=== PATIENT | male | born 1985 ===

== ENCOUNTER 2024-08-27 15:32 | Inpatient (IN) | payer OTHER, SELFPAY ==
--- OUTSIDE RECORDS SUMMARY | 2024-08-27 15:39 | XMS_ITS | Patient Health Record ---
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
[2024-08-27 15:52] VITALS: BP 96/51; PULSE 68; RESP 16; TEMP 36.6; O2SAT 98
[2024-08-27 16:14] VITALS: BMI 34.6
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
[2024-08-27 20:00] VITALS: BP 111/52; PULSE 69; RESP 16; TEMP 36.7; O2SAT 99
[2024-08-28 07:00] VITALS: BMI 35.1
[2024-08-28 07:52] VITALS: BP 112/52; PULSE 61; RESP 18; TEMP 36.4
[2024-08-28 08:53] LABS: Hemoglobin A1C 101.2049 umol/L; Total Hemoglobin (HGBA1C) 3697.0806 umol/L
[2024-08-28] MEDS: Nicotine 21 MG PATCH.TD24 TRANSDERMA (08:53)
[2024-08-28 08:54] LABS: Alanine Aminotransferase 16 U/L (0-40); Albumin Level 4.4 g/dL (3.5-5.0); Alkaline Phosphatase 72 U/L (39-117); Anion Gap 12 (12-20); Aspartate Amino Transferase 21 U/L (5-37); Blood Urea Nitrogen 10 mg/dL (9-16); Calcium 9.0 mg/dL (8.4-10.2); Carbon Dioxide 26 mmol/L (22-29); Chloride 105 mmol/L (96-108); Cholesterol 154 mg/dL (<200); Creatinine Clr Calc Pharmacy 148.7; Estimated Glomerular Filt Rate > 60; HDL Cholesterol 36 mg/dL (>40); Potassium 3.7 mmol/L (3.3-5.1); Sodium 139 mmol/L (135-145); Total Protein 7.1 g/dL (6.5-8.0); Triglycerides 65 mg/dL (<150)
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
[2024-08-28 21:53] VITALS: BP 105/62; PULSE 73; RESP 16; O2SAT 97
[2024-08-29 07:25] VITALS: BP 101/54; PULSE 53; RESP 14; TEMP 36.9; O2SAT 97
[2024-08-29] MEDS: Nicotine 21 MG PATCH.TD24 TRANSDERMA (08:24)
--- NOTE | 2024-08-29 08:50 | P.PNPSI_ITS ---
Subjective Subjective Date of Service: 08/29/24 Reason For Visit: Unspecified Mental Disorder Subjective Notes: Conditional Voluntary Interim History: Active on unit. attending groups. patient continues to report feeling depressed; reports he was able to sleep through the night. denies any side effects from medications. denies SI/HI/VH/AH. Continue current tx plan. Medication Compliance: Yes Side effects from medications: No Attending Groups: Yes Mental Status Exam Mental Status Exam Narrative: Pt is alert and oriented; behavior is cooperative and calm; dressed in casual attire; mood is described as depressed ; eye contact appropriate; Speech is normal rate, volume and not pressured; thought process is organized; Thought content is on tx; denies SI/HI/VH/AH. Diagnostics Vital Signs (24Hr): Vital Signs - 24 hr 08/28/24 21:53 08/29/24 07:25 Temperature 98.4 F Pulse Rate 73 53 Respiratory Rate 16 14 Blood Pressure 105/62 101/54 L Pulse Oximetry 97 97 Oxygen Delivery Method Room Air Room Air BMI result Body Mass Index 35.1 Labs 08/28/24 08:32 Labs: Laboratory Results - last 48 hr 08/28/24 08:32 Sodium 139 Potassium 3.7 Chloride 105 Carbon Dioxide 26 Anion Gap 12 BUN 10 Creatinine 0.81 Estim Creat Clear Calc 148.7 Estimated GFR > 60 Random Glucose 95 Estimat Average Glucose 88 Hemoglobin A1c % 4.7 Calcium 9.0 Total Bilirubin 0.6 AST 21 ALT 16 Alkaline Phosphatase 72 Total Protein 7.1 Albumin 4.4 Triglycerides 65 Cholesterol 154 LDL Cholesterol, Calc 105 H HDL Cholesterol 36 L Medications Medications Current Medications Acetaminophen (Acetaminophen 325 Mg Tablet) 650 mg PO Q6H PRN PRN Reason: Headache/Pain, Scale 1-10 Last Admin: 08/28/24 22:00 Dose: 650 mg Al Hydroxide/Mg Hydroxide (Magnesium Hydrox/Alum Hydrox 30 Ml Oral.Susp) 30 ml PO Q6H PRN PRN Reason: Heartburn/Nausea Hydroxyzine HCl (Hydroxyzine Hcl 25 Mg Tablet) 25 mg PO Q6H PRN PRN Reason: mild anxiety Levetiracetam (Levetiracetam 500 Mg Tablet) 500 mg PO BID [facility] Last Admin: 08/29/24 08:26 Dose: 500 mg Magnesium Hydroxide (Milk Of Magnesia 30 Ml Oral.Susp) 30 ml PO DAILY PRN PRN Reason: Constipation Mirtazapine (Mirtazapine 15 Mg Tablet) 15 mg PO BEDTIME [facility] Last Admin: 08/28/24 22:00 Dose: 15 mg Naproxen (Naproxen 500 Mg Tablet) 500 mg PO BID [facility] Last Admin: 08/29/24 08:26 Dose: 500 mg Nicotine (Nicotine 21 Mg Patch.Td24) 21 mg TRANSDERMA DAILY [facility] Last Admin: 08/29/24 08:24 Dose: 21 mg Nicotine Polacrilex (Nicotine Polacrilex 2 Mg Gum) 4 mg BUCCAL Q2H PRN PRN Reason: Nicotine Cravings Olanzapine (Olanzapine 5 Mg Tablet) 5 mg PO Q4H PRN PRN Reason: agitation Trazodone HCl (Trazodone Hcl 100 Mg Tablet) 100 mg PO BEDTIME [facility] Last Admin: 08/28/24 22:00 Dose: 100 mg Allergies Allergies Allergy/AdvReac Type Severity Reaction Status Date / Time bee pollen (bee stings) Allergy Severe Swelling Verified 08/28/24 12:52 Peanut Butter Allergy Severe Hives Verified 08/28/24 12:52 Assessment & Plan Assessment & Plan (1) MDD (major depressive disorder): Status: Acute Code(s): F32.9 - Major depressive disorder, single episode, unspecified (2) PTSD (post-traumatic stress disorder): Status: Acute Code(s): F43.10 - Post-traumatic stress disorder, unspecified (3) Cocaine use disorder: Status: Acute Code(s): F14.10 - Cocaine abuse, uncomplicated Plan Patient is a 39-year-old male with history of MDD, PTSD and cocaine use d/o who self presented to ER due to experiencing auditory hallucinations and increased paranoia secondary to substance use and increased life stressors. Plan: CV 15 minute safety checks Continue home medications Start: Remeron 15mg PO bedtime obtain collateral referral to outpatient psychiatric providers encourage groups discharge planning 08/29:Active on unit. attending groups. patient continues to report feeling depressed; reports he was able to sleep through the night. denies any side effects from medications. denies SI/HI/VH/AH. Continue current tx plan. Patient educated on: diagnosis, medication risk/benefits and therapeutic strategies Reason for continued inpatient stay Substantial Risk for: med/psych decompensation Time Spent With Patient Time: Total time managing care of this patient today __20__ minutes.
[2024-08-29 19:40] VITALS: BP 94/56; PULSE 75; RESP 16; TEMP 36.9; O2SAT 98
[2024-08-30 08:00] VITALS: BP 107/65; PULSE 63; RESP 18; TEMP 36.5; O2SAT 100
[2024-08-30] MEDS: Nicotine 21 MG PATCH.TD24 TRANSDERMA (09:20)
[2024-08-30 20:50] VITALS: BP 139/60; PULSE 80; RESP 18; TEMP 37; O2SAT 96
--- NOTE | 2024-08-30 22:52 | P.PNPSI_ITS ---
Subjective Subjective Date of Service: 08/30/24 Reason For Visit: Unspecified Mental Disorder Subjective Notes: Conditional Voluntary Healthcare Proxy: No Guardianship: No Medical Problems Affecting Mental Status: No Interim History: Medical record and nursing notes reviewed; case discussed during rounds with team/nursing staff, and met with patient for supportive therapy/psychoeducation, as well as medication management. Per chart review, patient slept for 7 hours and was medication compliant. Denies any side effects. He does not have a whole knowledge about what medication he has been taking that do remember that medication for seizure disorder. He is visible in common areas, however mostly kept himself, quiet. Appear to be preoccupied. Denies safety concerns. Mood is up and down in terms of depression and anxiety, rated a 5/10. , reports voices mumbling voices experience this morning and yesterday but having tough time to elaborate specific voices that he heard. Medication Compliance: Yes Side effects from medications: No Attending Groups: Intermittent Review of Systems Acute medical concerns: No Medical Review of Systems: unchanged Review of Systems Review of Systems Denies any shortness of breath, chest pain, dizziness, lightheadedness, abdominal pain or discomfort, nausea vomiting or diarrhea Yes all other systems are reviewed and are negative Mental Status Exam Mental Status Exam Narrative: Pt is alert and oriented; behavior is cooperative and calm; dressed in hospital attire; mood is described as up and down ; in terms of depression and anxiety eye contact appropriate; Speech is softto normal rate, volume and not pressured; thought process is organized; Thought content is on tx; denies SI/SIB/HI/VH. Reports hearing mumbling voices this morning and yesterday Diagnostics Vital Signs (24Hr): Vital Signs - 24 hr 08/30/24 08:00 08/30/24 20:50 Temperature 97.7 F 98.6 F Pulse Rate 63 80 Respiratory Rate 18 18 Blood Pressure 107/65 139/60 Pulse Oximetry 100 96 Oxygen Delivery Method Room Air Room Air BMI result Body Mass Index 35.1 Labs 08/28/24 08:32 Medications Medications Current Medications Acetaminophen (Acetaminophen 325 Mg Tablet) 650 mg PO Q6H PRN PRN Reason: Headache/Pain, Scale 1-10 Last Admin: 08/28/24 22:00 Dose: 650 mg Al Hydroxide/Mg Hydroxide (Magnesium Hydrox/Alum Hydrox 30 Ml Oral.Susp) 30 ml PO Q6H PRN PRN Reason: Heartburn/Nausea Hydroxyzine HCl (Hydroxyzine Hcl 25 Mg Tablet) 25 mg PO Q6H PRN PRN Reason: mild anxiety Levetiracetam (Levetiracetam 500 Mg Tablet) 500 mg PO BID [facility] Last Admin: 08/30/24 20:58 Dose: 500 mg Magnesium Hydroxide (Milk Of Magnesia 30 Ml Oral.Susp) 30 ml PO DAILY PRN PRN Reason: Constipation Mirtazapine (Mirtazapine 15 Mg Tablet) 15 mg PO BEDTIME [facility] Last Admin: 08/30/24 20:59 Dose: 15 mg Naproxen (Naproxen 500 Mg Tablet) 500 mg PO BID [facility] Last Admin: 08/30/24 20:58 Dose: 500 mg Nicotine (Nicotine 21 Mg Patch.Td24) 21 mg TRANSDERMA DAILY [facility] Last Admin: 08/30/24 09:20 Dose: 21 mg Nicotine Polacrilex (Nicotine Polacrilex 2 Mg Gum) 4 mg BUCCAL Q2H PRN PRN Reason: Nicotine Cravings Olanzapine (Olanzapine 5 Mg Tablet) 5 mg PO Q4H PRN PRN Reason: agitation Last Admin: 08/29/24 09:58 Dose: 5 mg Trazodone HCl (Trazodone Hcl 100 Mg Tablet) 100 mg PO BEDTIME [facility] Last Admin: 08/30/24 20:58 Dose: 100 mg Allergies Allergies Allergy/AdvReac Type Severity Reaction Status Date / Time bee pollen (bee stings) Allergy Severe Swelling Verified 08/28/24 12:52 Peanut Butter Allergy Severe Hives Verified 08/28/24 12:52 Assessment & Plan Assessment & Plan (1) MDD (major depressive disorder): Status: Acute Code(s): F32.9 - Major depressive disorder, single episode, unspecified (2) PTSD (post-traumatic stress disorder): Status: Acute Code(s): F43.10 - Post-traumatic stress disorder, unspecified (3) Cocaine use disorder: Status: Acute Code(s): F14.10 - Cocaine abuse, uncomplicated Plan Patient is a 39-year-old male with history of MDD, PTSD and cocaine use d/o who self presented to ER due to experiencing auditory hallucinations and increased paranoia secondary to substance use and increased life stressors. Plan: CV 15 minute safety checks Continue home medications Start: Remeron 15mg PO bedtime obtain collateral referral to outpatient psychiatric providers encourage groups discharge planning 08/29:Active on unit. attending groups. patient continues to report feeling depressed; reports he was able to sleep through the night. denies any side effects from medications. denies SI/HI/VH/AH. Continue current tx plan. 08/30/24: Visible on the unit in common area but keep to himself, calm and cooperative upon approach. Mood is up and down with anxiety and depression a 06/28. Reports mumbling voices yesterday and early today. We will consider to start on anti psychotic medication. We will discuss with him tomorrow Patient educated on: medication risk/benefits and therapeutic strategies Informed Consent: understands Reason for continued inpatient stay Substantial Risk for: med/psych decompensation Time Spent With Patient Time: Total time managing care of this patient today ____ minutes.
[2024-08-31 08:00] VITALS: BP 124/65; PULSE 97; RESP 14; TEMP 36.6; O2SAT 100
[2024-08-31] MEDS: Nicotine 21 MG PATCH.TD24 TRANSDERMA (09:32)
--- NOTE | 2024-08-31 13:16 | P.PNPSI_ITS ---
Subjective Subjective Date of Service: 08/31/24 Reason For Visit: Unspecified Mental Disorder Subjective Notes: Conditional Voluntary Healthcare Proxy: No Guardianship: No Medical Problems Affecting Mental Status: No Interim History: Medical record and nursing notes reviewed; case discussed during rounds with team/nursing staff, and met with patient for supportive therapy/psychoeducation, as well as medication management. Patient slept 8 hours and was medication compliant, denies side effects. Appear to be preoccupied and paranoid. Reports hearing voices for about a month so for. Reports sometimes experience PTSD. He also shared that he used to drink a lot. Denies anxiety and depression. Discussed with him regarding antipsychotic medication for voices and paranoid thoughts. To avoid weight gain, he agreed to take Abilify. Medication Compliance: Yes Side effects from medications: No Attending Groups: Intermittent Review of Systems Acute medical concerns: No Medical Review of Systems: unchanged Review of Systems Review of Systems Denies any shortness of breath, chest pain, dizziness, lightheadedness, abdominal pain or discomfort, nausea vomiting or diarrhea Yes all other systems are reviewed and are negative Mental Status Exam Mental Status Exam Narrative: Pt is alert and oriented; behavior is cooperative and calm; dressed in hospital attire; mood is described as good ; in terms of depression and anxiety eye contact appropriate; Speech is soft to normal rate, volume and not pressured; thought process is organized; Thought content is on tx; denies SI/SIB/HI/VH. Reports hearing mumbling voices and feel paranoid,especially when PTSD symptoms increased. Diagnostics Vital Signs (24Hr): Vital Signs - 24 hr 08/30/24 20:50 08/31/24 08:00 Temperature 98.6 F 97.9 F Pulse Rate 80 97 Respiratory Rate 18 14 Blood Pressure 139/60 124/65 Pulse Oximetry 96 100 Oxygen Delivery Method Room Air Room Air BMI result Body Mass Index 35.1 Labs 08/28/24 08:32 Medications Medications Current Medications Acetaminophen (Acetaminophen 325 Mg Tablet) 650 mg PO Q6H PRN PRN Reason: Headache/Pain, Scale 1-10 Last Admin: 08/28/24 22:00 Dose: 650 mg Al Hydroxide/Mg Hydroxide (Magnesium Hydrox/Alum Hydrox 30 Ml Oral.Susp) 30 ml PO Q6H PRN PRN Reason: Heartburn/Nausea Aripiprazole (Aripiprazole 5 Mg Tablet) 5 mg PO DAILY [facility] Last Admin: 08/31/24 10:29 Dose: 5 mg Hydroxyzine HCl (Hydroxyzine Hcl 25 Mg Tablet) 25 mg PO Q6H PRN PRN Reason: mild anxiety Levetiracetam (Levetiracetam 500 Mg Tablet) 500 mg PO BID [facility] Last Admin: 08/31/24 09:32 Dose: 500 mg Magnesium Hydroxide (Milk Of Magnesia 30 Ml Oral.Susp) 30 ml PO DAILY PRN PRN Reason: Constipation Mirtazapine (Mirtazapine 15 Mg Tablet) 15 mg PO BEDTIME [facility] Last Admin: 08/30/24 20:59 Dose: 15 mg Naproxen (Naproxen 500 Mg Tablet) 500 mg PO BID [facility] Last Admin: 08/31/24 09:31 Dose: 500 mg Nicotine (Nicotine 21 Mg Patch.Td24) 21 mg TRANSDERMA DAILY [facility] Last Admin: 08/31/24 09:32 Dose: 21 mg Nicotine Polacrilex (Nicotine Polacrilex 2 Mg Gum) 4 mg BUCCAL Q2H PRN PRN Reason: Nicotine Cravings Olanzapine (Olanzapine 5 Mg Tablet) 5 mg PO Q4H PRN PRN Reason: agitation Last Admin: 08/29/24 09:58 Dose: 5 mg Trazodone HCl (Trazodone Hcl 100 Mg Tablet) 100 mg PO BEDTIME [facility] Last Admin: 08/30/24 20:58 Dose: 100 mg Allergies Allergies Allergy/AdvReac Type Severity Reaction Status Date / Time bee pollen (bee stings) Allergy Severe Swelling Verified 08/28/24 12:52 Peanut Butter Allergy Severe Hives Verified 08/28/24 12:52 Assessment & Plan Assessment & Plan (1) MDD (major depressive disorder): Status: Acute Code(s): F32.9 - Major depressive disorder, single episode, unspecified (2) PTSD (post-traumatic stress disorder): Status: Acute Code(s): F43.10 - Post-traumatic stress disorder, unspecified (3) Cocaine use disorder: Status: Acute Code(s): F14.10 - Cocaine abuse, uncomplicated Plan Patient is a 39-year-old male with history of MDD, PTSD and cocaine use d/o who self presented to ER due to experiencing auditory hallucinations and increased paranoia secondary to substance use and increased life stressors. Plan: CV 15 minute safety checks Continue home medications Start: Remeron 15mg PO bedtime obtain collateral referral to outpatient psychiatric providers encourage groups discharge planning 08/29:Active on unit. attending groups. patient continues to report feeling depressed; reports he was able to sleep through the night. denies any side effects from medications. denies SI/HI/VH/AH. Continue current tx plan. 08/30/24: Visible on the unit in common area but keep to himself, calm and cooperative upon approach. Mood is up and down with anxiety and depression a 06/28. Reports mumbling voices yesterday and early today. We will consider to start on anti psychotic medication. We will discuss with him tomorrow. 08/31/24: Sleep well, no appetite issues, visible, mostly keeps to himself, quiet. Appear to be preoccupied. Reports voices and feeling paranoid. Every 2 start Abilify to avoid weight gain compared to the other antipsychotic medications. Started Abilify 5 mg this morning. Monitor for side effects and continue to titrate to therapeutic dose. Patient educated on: medication risk/benefits and therapeutic strategies Informed Consent: understands Reason for continued inpatient stay Substantial Risk for: med/psych decompensation Time Spent With Patient Time: Total time managing care of this patient today ____ minutes.
[2024-08-31 20:00] VITALS: BP 118/58; PULSE 74; RESP 16; TEMP 36.4; O2SAT 99
[2024-09-01 08:00] VITALS: BP 108/66; PULSE 58; RESP 16; TEMP 36.4; O2SAT 99
[2024-09-01] MEDS: Nicotine 21 MG PATCH.TD24 TRANSDERMA (09:07)
--- NOTE | 2024-09-01 12:38 | P.PNPSI_ITS ---
Subjective Subjective Date of Service: 09/01/24 Reason For Visit: Unspecified Mental Disorder Subjective Notes: Conditional Voluntary Interim History: Active on unit, social with peers. attending groups. guarded. pt reports feeling okay today; he reports poor sleep last night d/t waking up frequently. Patient reports +AH and paranoia over weekend; was started on Abilify yesterday. denies any side effects from medications. denies SI/HI/VH/AH today. Continue urrent tx plan. Medication Compliance: Yes Side effects from medications: No Attending Groups: Yes Mental Status Exam Mental Status Exam Narrative: Pt is alert and oriented; behavior is cooperative and calm, guarded; dressed in casual attire; mood is described as okay ; eye contact appropriate; Speech is normal rate, volume and not pressured; thought process is organized and goal directed; Thought content is on tx; pt reports paranoia over weekend; denies SI/HI/VH/AH at this time. Diagnostics Vital Signs (24Hr): Vital Signs - 24 hr 08/31/24 20:00 09/01/24 08:00 Temperature 97.5 F 97.6 F Pulse Rate 74 58 Respiratory Rate 16 16 Blood Pressure 118/58 L 108/66 Pulse Oximetry 99 99 Oxygen Delivery Method Room Air Room Air BMI result Body Mass Index 35.1 Labs 08/28/24 08:32 Medications Medications Current Medications Acetaminophen (Acetaminophen 325 Mg Tablet) 650 mg PO Q6H PRN PRN Reason: Headache/Pain, Scale 1-10 Last Admin: 08/28/24 22:00 Dose: 650 mg Al Hydroxide/Mg Hydroxide (Magnesium Hydrox/Alum Hydrox 30 Ml Oral.Susp) 30 ml PO Q6H PRN PRN Reason: Heartburn/Nausea Aripiprazole (Aripiprazole 5 Mg Tablet) 5 mg PO DAILY [facility] Last Admin: 09/01/24 09:06 Dose: 5 mg Hydroxyzine HCl (Hydroxyzine Hcl 25 Mg Tablet) 25 mg PO Q6H PRN PRN Reason: mild anxiety Last Admin: 08/31/24 22:06 Dose: 25 mg Levetiracetam (Levetiracetam 500 Mg Tablet) 500 mg PO BID [facility] Last Admin: 09/01/24 09:06 Dose: 500 mg Magnesium Hydroxide (Milk Of Magnesia 30 Ml Oral.Susp) 30 ml PO DAILY PRN PRN Reason: Constipation Mirtazapine (Mirtazapine 15 Mg Tablet) 15 mg PO BEDTIME [facility] Last Admin: 08/31/24 20:52 Dose: 15 mg Naproxen (Naproxen 500 Mg Tablet) 500 mg PO BID [facility] Last Admin: 09/01/24 09:06 Dose: 500 mg Nicotine (Nicotine 21 Mg Patch.Td24) 21 mg TRANSDERMA DAILY [facility] Last Admin: 09/01/24 09:07 Dose: 21 mg Nicotine Polacrilex (Nicotine Polacrilex 2 Mg Gum) 4 mg BUCCAL Q2H PRN PRN Reason: Nicotine Cravings Olanzapine (Olanzapine 5 Mg Tablet) 5 mg PO Q4H PRN PRN Reason: agitation Last Admin: 08/31/24 22:06 Dose: 5 mg Trazodone HCl (Trazodone Hcl 100 Mg Tablet) 100 mg PO BEDTIME [facility] Last Admin: 08/31/24 20:51 Dose: 100 mg Allergies Allergies Allergy/AdvReac Type Severity Reaction Status Date / Time bee pollen (bee stings) Allergy Severe Swelling Verified 08/28/24 12:52 Peanut Butter Allergy Severe Hives Verified 08/28/24 12:52 Assessment & Plan Assessment & Plan (1) MDD (major depressive disorder): Status: Acute Code(s): F32.9 - Major depressive disorder, single episode, unspecified (2) PTSD (post-traumatic stress disorder): Status: Acute Code(s): F43.10 - Post-traumatic stress disorder, unspecified (3) Cocaine use disorder: Status: Acute Code(s): F14.10 - Cocaine abuse, uncomplicated Plan Patient is a 39-year-old male with history of MDD, PTSD and cocaine use d/o who self presented to ER due to experiencing auditory hallucinations and increased paranoia secondary to substance use and increased life stressors. Plan: CV 15 minute safety checks Continue home medications Start: Remeron 15mg PO bedtime obtain collateral referral to outpatient psychiatric providers encourage groups discharge planning 08/29:Active on unit. attending groups. patient continues to report feeling depressed; reports he was able to sleep through the night. denies any side effects from medications. denies SI/HI/VH/AH. Continue current tx plan. 08/30/24: Visible on the unit in common area but keep to himself, calm and cooperative upon approach. Mood is up and down with anxiety and depression a 06/28. Reports mumbling voices yesterday and early today. We will consider to start on anti psychotic medication. We will discuss with him tomorrow. 08/31/24: Sleep well, no appetite issues, visible, mostly keeps to himself, quiet. Appear to be preoccupied. Reports voices and feeling paranoid. Every 2 start Abilify to avoid weight gain compared to the other antipsychotic medications. Started Abilify 5 mg this morning. Monitor for side effects and continue to titrate to therapeutic dose. 09/01: Active on unit, social with peers. attending groups. guarded. pt reports feeling okay today; he reports poor sleep last night d/t waking up frequently. Patient reports +AH and paranoia over weekend; was started on Abilify yesterday. denies any side effects from medications. denies SI/HI/VH/AH today. Continue urrent tx plan. Patient educated on: diagnosis, medication risk/benefits and therapeutic strategies Reason for continued inpatient stay Substantial Risk for: med/psych decompensation Time Spent With Patient Time: Total time managing care of this patient today _20___ minutes.
[2024-09-01 20:00] VITALS: BP 104/63; PULSE 66; RESP 16; TEMP 36.6; O2SAT 99
[2024-09-02 07:55] VITALS: BP 109/56; PULSE 63; RESP 16; TEMP 36.7; O2SAT 98
--- NOTE | 2024-09-02 09:33 | P.PNPSI_ITS ---
Subjective Subjective Date of Service: 09/02/24 Reason For Visit: Unspecified Mental Disorder Subjective Notes: Conditional Voluntary Interim History: Patient requesting to be referred to substance abuse program; [facility] worker aware. Patient reports no longer feeling paranoid however having auditory hallucinations of mumbles ; encouraged to utilize PRN zyprexa. denies SI/HI/VH. Continue current tx plan. Medication Compliance: Yes Side effects from medications: No Attending Groups: Yes Mental Status Exam Mental Status Exam Narrative: Pt is alert and oriented; behavior is cooperative and calm, guarded; dressed in casual attire; mood is described as alright ; eye contact appropriate; Speech is normal rate, volume and not pressured; thought process is organized and goal directed; Thought content is on tx; denies SI/HI/VH. + Diagnostics Vital Signs (24Hr): Vital Signs - 24 hr 09/01/24 20:00 09/02/24 07:55 Temperature 98 F 98.0 F Pulse Rate 66 63 Respiratory Rate 16 16 Blood Pressure 104/63 109/56 L Pulse Oximetry 99 98 Oxygen Delivery Method Room Air Room Air BMI result Body Mass Index 35.1 Labs 08/28/24 08:32 Medications Medications Current Medications Acetaminophen (Acetaminophen 325 Mg Tablet) 650 mg PO Q6H PRN PRN Reason: Headache/Pain, Scale 1-10 Last Admin: 08/28/24 22:00 Dose: 650 mg Al Hydroxide/Mg Hydroxide (Magnesium Hydrox/Alum Hydrox 30 Ml Oral.Susp) 30 ml PO Q6H PRN PRN Reason: Heartburn/Nausea Aripiprazole (Aripiprazole 5 Mg Tablet) 5 mg PO DAILY [facility] Last Admin: 09/02/24 08:26 Dose: 5 mg Hydroxyzine HCl (Hydroxyzine Hcl 25 Mg Tablet) 25 mg PO Q6H PRN PRN Reason: mild anxiety Last Admin: 08/31/24 22:06 Dose: 25 mg Levetiracetam (Levetiracetam 500 Mg Tablet) 500 mg PO BID [facility] Last Admin: 09/02/24 08:26 Dose: 500 mg Magnesium Hydroxide (Milk Of Magnesia 30 Ml Oral.Susp) 30 ml PO DAILY PRN PRN Reason: Constipation Mirtazapine (Mirtazapine 15 Mg Tablet) 15 mg PO BEDTIME [facility] Last Admin: 09/01/24 20:40 Dose: 15 mg Naproxen (Naproxen 500 Mg Tablet) 500 mg PO BID [facility] Last Admin: 09/02/24 08:26 Dose: 500 mg Nicotine (Nicotine 21 Mg Patch.Td24) 21 mg TRANSDERMA DAILY [facility] Last Admin: 09/02/24 09:23 Dose: Not Given Nicotine Polacrilex (Nicotine Polacrilex 2 Mg Gum) 4 mg BUCCAL Q2H PRN PRN Reason: Nicotine Cravings Olanzapine (Olanzapine 5 Mg Tablet) 5 mg PO Q4H PRN PRN Reason: agitation Last Admin: 08/31/24 22:06 Dose: 5 mg Trazodone HCl (Trazodone Hcl 100 Mg Tablet) 100 mg PO BEDTIME [facility] Last Admin: 09/01/24 20:40 Dose: 100 mg Allergies Allergies Allergy/AdvReac Type Severity Reaction Status Date / Time bee pollen (bee stings) Allergy Severe Swelling Verified 08/28/24 12:52 Peanut Butter Allergy Severe Hives Verified 08/28/24 12:52 Assessment & Plan Assessment & Plan (1) MDD (major depressive disorder): Status: Acute Code(s): F32.9 - Major depressive disorder, single episode, unspecified (2) PTSD (post-traumatic stress disorder): Status: Acute Code(s): F43.10 - Post-traumatic stress disorder, unspecified (3) Cocaine use disorder: Status: Acute Code(s): F14.10 - Cocaine abuse, uncomplicated Plan Patient is a 39-year-old male with history of MDD, PTSD and cocaine use d/o who self presented to ER due to experiencing auditory hallucinations and increased paranoia secondary to substance use and increased life stressors. Plan: CV 15 minute safety checks Continue home medications Start: Remeron 15mg PO bedtime obtain collateral referral to outpatient psychiatric providers encourage groups discharge planning 08/29:Active on unit. attending groups. patient continues to report feeling depressed; reports he was able to sleep through the night. denies any side effects from medications. denies SI/HI/VH/AH. Continue current tx plan. 08/30/24: Visible on the unit in common area but keep to himself, calm and cooperative upon approach. Mood is up and down with anxiety and depression a 5/10. Reports mumbling voices yesterday and early today. We will consider to start on anti psychotic medication. We will discuss with him tomorrow. 08/31/24: Sleep well, no appetite issues, visible, mostly keeps to himself, quiet. Appear to be preoccupied. Reports voices and feeling paranoid. Every 2 start Abilify to avoid weight gain compared to the other antipsychotic medications. Started Abilify 5 mg this morning. Monitor for side effects and continue to titrate to therapeutic dose. 09/01: Active on unit, social with peers. attending groups. guarded. pt reports feeling okay today; he reports poor sleep last night d/t waking up frequently. Patient reports +AH and paranoia over weekend; was started on Abilify yesterday. denies any side effects from medications. denies SI/HI/VH/AH today. Continue urrent tx plan. 09/02: Patient requesting to be referred to substance abuse program; [facility] worker aware. Patient reports no longer feeling paranoid however having auditory hallucinations of mumbles ; encouraged to utilize PRN zyprexa. denies SI/HI/VH. Continue current tx plan. Patient educated on: diagnosis, medication risk/benefits and therapeutic strategies Reason for continued inpatient stay Substantial Risk for: med/psych decompensation Time Spent With Patient Time: Total time managing care of this patient today _20___ minutes.
[2024-09-02 20:00] VITALS: BP 124/56; PULSE 75; RESP 16; TEMP 36.7; O2SAT 99
[2024-09-03 07:53] VITALS: BP 85/45; PULSE 60; RESP 18; TEMP 37.1; O2SAT 98
--- NOTE | 2024-09-03 07:57 | HO.PSYCHPN ---
Subjective Subjective Date of Service: 09/03/24 Reason For Visit: Unspecified Mental Disorder Subjective Notes: Conditional Voluntary Interim History: Patient reports feeling alright this morning; reports he did not sleep well last night but does not know why. Patient reports zyprexa has been helpful with auditory hallucinations. denies SI/HI/VH/AH. plans on discharging Sunday if continues to improve. Continue current tx plan. Medication Compliance: Yes Side effects from medications: No Attending Groups: Yes Mental Status Exam Mental Status Exam Narrative: Pt is alert and oriented; behavior is cooperative and calm, guarded; dressed in casual attire; mood is described as alright ; eye contact appropriate; Speech is normal rate, volume and not pressured; thought process is organized; Thought content is on tx; denies SI/HI/VH/AH. Diagnostics Vital Signs (24Hr): Vital Signs - 24 hr 09/02/24 20:00 Temperature 98.1 F Pulse Rate 75 Respiratory Rate 16 Blood Pressure 124/56 L Pulse Oximetry 99 Oxygen Delivery Method Room Air BMI result Body Mass Index 35.1 Labs 08/28/24 08:32 Medications Medications Current Medications Acetaminophen (Acetaminophen 325 Mg Tablet) 650 mg PO Q6H PRN PRN Reason: Headache/Pain, Scale 1-10 Last Admin: 08/28/24 22:00 Dose: 650 mg Al Hydroxide/Mg Hydroxide (Magnesium Hydrox/Alum Hydrox 30 Ml Oral.Susp) 30 ml PO Q6H PRN PRN Reason: Heartburn/Nausea Aripiprazole (Aripiprazole 5 Mg Tablet) 5 mg PO DAILY [facility] Last Admin: 09/02/24 08:26 Dose: 5 mg Hydroxyzine HCl (Hydroxyzine Hcl 25 Mg Tablet) 25 mg PO Q6H PRN PRN Reason: mild anxiety Last Admin: 09/02/24 22:48 Dose: 25 mg Levetiracetam (Levetiracetam 500 Mg Tablet) 500 mg PO BID [facility] Last Admin: 09/02/24 20:55 Dose: 500 mg Magnesium Hydroxide (Milk Of Magnesia 30 Ml Oral.Susp) 30 ml PO DAILY PRN PRN Reason: Constipation Mirtazapine (Mirtazapine 15 Mg Tablet) 15 mg PO BEDTIME [facility] Last Admin: 09/02/24 20:55 Dose: 15 mg Naproxen (Naproxen 500 Mg Tablet) 500 mg PO BID [facility] Last Admin: 09/02/24 20:56 Dose: 500 mg Nicotine (Nicotine 21 Mg Patch.Td24) 21 mg TRANSDERMA DAILY [facility] Last Admin: 09/02/24 09:23 Dose: Not Given Nicotine Polacrilex (Nicotine Polacrilex 2 Mg Gum) 4 mg BUCCAL Q2H PRN PRN Reason: Nicotine Cravings Olanzapine (Olanzapine 5 Mg Tablet) 5 mg PO Q4H PRN PRN Reason: agitation Last Admin: 09/02/24 12:31 Dose: 5 mg Trazodone HCl (Trazodone Hcl 100 Mg Tablet) 100 mg PO BEDTIME [facility] Last Admin: 09/02/24 20:55 Dose: 100 mg Allergies Allergies Allergy/AdvReac Type Severity Reaction Status Date / Time bee pollen (bee stings) Allergy Severe Swelling Verified 08/28/24 12:52 Peanut Butter Allergy Severe Hives Verified 08/28/24 12:52 Assessment & Plan Assessment & Plan (1) MDD (major depressive disorder): Status: Acute Code(s): F32.9 - Major depressive disorder, single episode, unspecified (2) PTSD (post-traumatic stress disorder): Status: Acute Code(s): F43.10 - Post-traumatic stress disorder, unspecified (3) Cocaine use disorder: Status: Acute Code(s): F14.10 - Cocaine abuse, uncomplicated Plan Patient is a 39-year-old male with history of MDD, PTSD and cocaine use d/o who self presented to ER due to experiencing auditory hallucinations and increased paranoia secondary to substance use and increased life stressors. Plan: CV 15 minute safety checks Continue home medications Start: Remeron 15mg PO bedtime obtain collateral referral to outpatient psychiatric providers encourage groups discharge planning 08/29:Active on unit. attending groups. patient continues to report feeling depressed; reports he was able to sleep through the night. denies any side effects from medications. denies SI/HI/VH/AH. Continue current tx plan. 08/30/24: Visible on the unit in common area but keep to himself, calm and cooperative upon approach. Mood is up and down with anxiety and depression a 5/10. Reports mumbling voices yesterday and early today. We will consider to start on anti psychotic medication. We will discuss with him tomorrow. 08/31/24: Sleep well, no appetite issues, visible, mostly keeps to himself, quiet. Appear to be preoccupied. Reports voices and feeling paranoid. Every 2 start Abilify to avoid weight gain compared to the other antipsychotic medications. Started Abilify 5 mg this morning. Monitor for side effects and continue to titrate to therapeutic dose. 09/01: Active on unit, social with peers. attending groups. guarded. pt reports feeling okay today; he reports poor sleep last night d/t waking up frequently. Patient reports +AH and paranoia over weekend; was started on Abilify yesterday. denies any side effects from medications. denies SI/HI/VH/AH today. Continue urrent tx plan. 09/02: Patient requesting to be referred to substance abuse program; home health care social worker aware. Patient reports no longer feeling paranoid however having auditory hallucinations of mumbles ; encouraged to utilize PRN zyprexa. denies SI/HI/VH. Continue current tx plan. 09/03: Patient reports feeling alright this morning; reports he did not sleep well last night but does not know why. Patient reports zyprexa has been helpful with auditory hallucinations. denies SI/HI/VH/AH. plans on discharging Sunday if continues to improve. Continue current tx plan. Patient educated on: diagnosis and medication risk/benefits Reason for continued inpatient stay Substantial Risk for: med/psych decompensation Time Spent With Patient Time: Total time managing care of this patient today _20___ minutes.
[2024-09-03 08:12] VITALS: BP 130/78; PULSE 61; O2SAT 98
[2024-09-03 20:00] VITALS: BP 122/58; PULSE 70; RESP 16; TEMP 36.7; O2SAT 98
[2024-09-04 07:00] VITALS: BMI 36.0
[2024-09-04 08:00] VITALS: BP 115/54; PULSE 60; RESP 20; TEMP 36.7; O2SAT 99
--- NOTE | 2024-09-04 18:06 | P.PNPSI_ITS ---
Subjective Subjective Date of Service: 09/04/24 Reason For Visit: Unspecified Mental Disorder Subjective Notes: Conditional Voluntary Healthcare Proxy: No Guardianship: No Medical Problems Affecting Mental Status: No Interim History: Medical record and nursing notes reviewed; case discussed during rounds with team/nursing staff, and met with patient for supportive therapy/psychoeducation, as well as medication management. Patient slept for 8 hours, was medication compliant except for nicotine patch which I did continue with today. Denies side effects. He reports that he was tossed and turned last night but has no appetite issues. Mood is alright . Reports the mumbling sounds are still there but is less intense with medication started on Sunday-. He agrees with increase the dose today to target symptoms. Denies anxiety and depression. Feeling 50/50 agitation irritable mood. He denies other safety concerns. On the unit, doing coloring and work but not socially. He was on the phone at some points. Reported that he is able to return home with his girlfriend the bed is not available at treatment program. . 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. Continue touch base with [facility] if beds available Medication Compliance: Yes Side effects from medications: No Attending Groups: Yes Review of Systems Acute medical concerns: No Medical Review of Systems: unchanged Review of Systems Review of Systems Denies any shortness of breath, chest pain, dizziness, lightheadedness, abdominal pain or discomfort, nausea vomiting or diarrhea Yes all other systems are reviewed and are negative Mental Status Exam Mental Status Exam Narrative: Pt is alert and oriented; behavior is cooperative and calm, guarded; dressed in hospital attire; mood is described as alright ; eye contact appropriate; Speech is normal rate, volume and not pressured; thought process is organized; Thought content is on tx; denies SI/HI/AH. Report mumbling souds/noises are quiet down with medications. Diagnostics Vital Signs (24Hr): Vital Signs - 24 hr 09/03/24 20:00 09/04/24 08:00 Temperature 98.0 F 98.1 F Pulse Rate 70 60 Respiratory Rate 16 20 Blood Pressure 122/58 L 115/54 L Pulse Oximetry 98 99 Oxygen Delivery Method Room Air Room Air BMI result Body Mass Index 36.0 Labs 08/28/24 08:32 Medications Medications Current Medications Acetaminophen (Acetaminophen 325 Mg Tablet) 650 mg PO Q6H PRN PRN Reason: Headache/Pain, Scale 1-10 Last Admin: 08/28/24 22:00 Dose: 650 mg Al Hydroxide/Mg Hydroxide (Magnesium Hydrox/Alum Hydrox 30 Ml Oral.Susp) 30 ml PO Q6H PRN PRN Reason: Heartburn/Nausea Aripiprazole (Aripiprazole 10 Mg Tablet) 10 mg PO DAILY [facility] Hydroxyzine HCl (Hydroxyzine Hcl 25 Mg Tablet) 25 mg PO Q6H PRN PRN Reason: mild anxiety Last Admin: 09/04/24 13:52 Dose: 25 mg Levetiracetam (Levetiracetam 500 Mg Tablet) 500 mg PO BID [facility] Last Admin: 09/04/24 08:51 Dose: 500 mg Magnesium Hydroxide (Milk Of Magnesia 30 Ml Oral.Susp) 30 ml PO DAILY PRN PRN Reason: Constipation Mirtazapine (Mirtazapine 15 Mg Tablet) 15 mg PO BEDTIME [facility] Last Admin: 09/03/24 21:18 Dose: 15 mg Naproxen (Naproxen 500 Mg Tablet) 500 mg PO BID [facility] Last Admin: 09/04/24 08:49 Dose: 500 mg Nicotine Polacrilex (Nicotine Polacrilex 2 Mg Gum) 4 mg BUCCAL Q2H PRN PRN Reason: Nicotine Cravings Olanzapine (Olanzapine 5 Mg Tablet) 5 mg PO Q4H PRN PRN Reason: agitation Last Admin: 09/02/24 12:31 Dose: 5 mg Trazodone HCl (Trazodone Hcl 100 Mg Tablet) 100 mg PO BEDTIME [facility] Last Admin: 09/03/24 21:17 Dose: 100 mg Allergies Allergies Allergy/AdvReac Type Severity Reaction Status Date / Time bee pollen (bee stings) Allergy Severe Swelling Verified 08/28/24 12:52 Peanut Butter Allergy Severe Hives Verified 08/28/24 12:52 Assessment & Plan Assessment & Plan (1) MDD (major depressive disorder): Status: Acute Code(s): F32.9 - Major depressive disorder, single episode, unspecified (2) PTSD (post-traumatic stress disorder): Status: Acute Code(s): F43.10 - Post-traumatic stress disorder, unspecified (3) Cocaine use disorder: Status: Acute Code(s): F14.10 - Cocaine abuse, uncomplicated Plan Patient is a 39-year-old male with history of MDD, PTSD and cocaine use d/o who self presented to ER due to experiencing auditory hallucinations and increased paranoia secondary to substance use and increased life stressors. Plan: CV 15 minute safety checks Continue home medications Start: Remeron 15mg PO bedtime obtain collateral referral to outpatient psychiatric providers encourage groups discharge planning 08/29:Active on unit. attending groups. patient continues to report feeling depressed; reports he was able to sleep through the night. denies any side effects from medications. denies SI/HI/VH/AH. Continue current tx plan. 08/30/24: Visible on the unit in common area but keep to himself, calm and cooperative upon approach. Mood is up and down with anxiety and depression a 06/28. Reports mumbling voices yesterday and early today. We will consider to start on anti psychotic medication. We will discuss with him tomorrow. 08/31/24: Sleep well, no appetite issues, visible, mostly keeps to himself, quiet. Appear to be preoccupied. Reports voices and feeling paranoid. Every 2 start Abilify to avoid weight gain compared to the other antipsychotic medications. Started Abilify 5 mg this morning. Monitor for side effects and continue to titrate to therapeutic dose. 09/01: Active on unit, social with peers. attending groups. guarded. pt reports feeling okay today; he reports poor sleep last night d/t waking up frequently. Patient reports +AH and paranoia over weekend; was started on Abilify yesterday. denies any side effects from medications. denies SI/HI/VH/AH today. Continue urrent tx plan. 09/02: Patient requesting to be referred to substance abuse program; health social work professor aware. Patient reports no longer feeling paranoid however having auditory hallucinations of mumbles ; encouraged to utilize PRN zyprexa. denies SI/HI/VH. Continue current tx plan. 09/03: Patient reports feeling alright this morning; reports he did not sleep well last night but does not know why. Patient reports zyprexa has been helpful with auditory hallucinations. denies SI/HI/VH/AH. plans on discharging Sunday if continues to improve. Continue current tx plan. 09/04/24: Self reports toss and turn at night but chart review showing he slept for 8 hours, was medication compliant except nicotine patch. No side effects. Mumbling sounds/voices are quiet with the help of medications. Denies safety concerns. Improve in depression and anxiety. Discontinue nicotine patch. Increase Abilify from 5 to 10 mg start this morning. We will not discharge patient with Zyprexa. This provider is working on sending medication to preferred pharmacy patient is not discharged to [facility], then he will discharge home with his girlfriend. No behavior issues. He is visible, attended groups, but mostly quiet and kept to himself. Patient educated on: medication risk/benefits and therapeutic strategies Informed Consent: understands Reason for continued inpatient stay Substantial Risk for: med/psych decompensation Time Spent With Patient Time: Total time managing care of this patient today ____ minutes.
[2024-09-04 20:00] VITALS: BP 117/60; PULSE 74; RESP 16; TEMP 36.6; O2SAT 96
[2024-09-05 08:00] VITALS: BP 121/56; PULSE 72; RESP 18; TEMP 36.8; O2SAT 100
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
== END 2024-09-05 10:00 | disposition home or self-care (01) | DRG 754 ==
PROVIDERS: Admitting Provider Psychiatry & Neurology Psychiatry; Responsible Provider Registered Nurse; Visit Provider Psychiatry & Neurology Psychiatry
DX: F32.9 Major depressive disorder, single episode, unspecified (principal); G40.909 Epilepsy, unspecified, not intractable, without status epilepticus; F14.10 Cocaine abuse, uncomplicated; F43.10 Post-traumatic stress disorder, unspecified; M25.552 Pain in left hip; Z87.891 Personal history of nicotine dependence; Z79.899 Other long term (current) drug therapy
CPT/HCPCS: 36415; 80053; 80061; 83036

== ENCOUNTER → 2024-08-27 15:32 | Outpatient (BNV) | payer OTHER, SELFPAY | PROVIDERS: Admitting Provider Psychiatry & Neurology Psychiatry; Responsible Provider Registered Nurse; Visit Provider Nurse Practitioner Family | DX: G40.909 Epilepsy, unspecified, not intractable, without status epilepticus (principal) | CPT/HCPCS: 99221 ==

== ENCOUNTER → 2024-08-27 15:32 | Outpatient (BNV) | payer OTHER, SELFPAY | PROVIDERS: Admitting Provider Psychiatry & Neurology Psychiatry; Responsible Provider Registered Nurse; Visit Provider Registered Nurse | DX: F32.2 Major depressive disorder, single episode, severe without psychotic features (principal); F14.10 Cocaine abuse, uncomplicated; F43.11 Post-traumatic stress disorder, acute | CPT/HCPCS: 99231 ==